=== PATIENT | female | born 1980 | race Caucasian/White ===

== ENCOUNTER → 2018-01-13 | Outpatient (CLI) | payer OTHER | LOC: M RAD 15:23 | DX: H81.02 Meniere's disease, left ear (principal); Z98.890 Other specified postprocedural states | CPT/HCPCS: 70480 ==

== ENCOUNTER → 2018-05-07 | Outpatient (REF) | payer OTHER | LOC: M SFHCLERA 10:03 | PROVIDERS: ATTEND Nurse Practitioner Family | DX: J00 Acute nasopharyngitis [common cold] (principal) ==